=== PATIENT | female | born 1960 | race Caucasian/White ===

== ENCOUNTER 2021-07-03 10:47 | Emergency (ER) | payer SELFPAY ==
[2021-07-03 10:53] VITALS: BP 141/74; PULSE 61; RESP 18; TEMP 36.5; O2SAT 95; BMI 34.4
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
[2021-07-03 11:07] VITALS: BP 150/70; PULSE 65; RESP 18; O2SAT 95
[2021-07-03 11:19] LABS: Basophils % 0.5 %; Eosinophils # 0.1 10^3/uL (0.0-0.8); Eosinophils % 1.2 %; Hematocrit 41.8 % (37.0-47.0); Lymphocytes % 26.6 %; Mean Corpuscular HGB Conc 33.5 g/dL (30.0-36.0); Mean Corpuscular Volume 89.5 fl (81-99); Mean Platelet Volume 11.5 fL (7.4-10.4); Monocytes # 0.3 10^3/uL (0.2-0.9); Monocytes % 4.6 %; Neutrophils # 4.93 10^3/uL (1.8-7.7); Nucleated Red Blood Cells % 0 %; Platelet Count 203 10^3/cmm (130-400); Red Blood Count 4.67 10^6/uL (4.1-5.3); Red Cell Distribution Width 13.2 % (12.1-15.1); White Blood Count 7.5 10^3/uL (4.0-10.0)
[2021-07-03 11:48] LABS: Alanine Aminotransferase 18 U/L (0-33); Albumin Level 4.4 g/dL (3.5-5.2); Alkaline Phosphatase 93 IU/L (35-105); Aspartate Amino Transferase 20 U/L (0-32); Blood Urea Nitrogen 15 mg/dL (6-20); Calcium 9.3 mg/dL (8.5-10.5); Carbon Dioxide 19 mmol/L (22-29); Chloride 103 mmol/L (98-107); Globulin 2.6 g/dL (1.3-4.6); Glomerular Filtration Rate 73.7 mL/min (90-130); Glucose 117 mg/dL (65-115); Osmolality Calculated 286 mOsm/kg (285-295); Sodium 137 mmol/L (136-145); Total Bilirubin 0.4 mg/dL (0.15-1.2)
[2021-07-03 11:53] LABS: Anion Gap 19.4 (5-19); Potassium 4.4 mmol/L (3.5-5.1)
[2021-07-03] MEDS: iohexol 300 mg/mL 100 mL Btl IV (11:56)
[2021-07-03 12:35] VITALS: BP 158/97; PULSE 66; RESP 18; O2SAT 96
[2021-07-03] MEDS: ketorolac 30 mg/mL INJ IVP (12:38)
[2021-07-03] MEDS: orphenadrine 30 mg/mL Inj 2 mL 60 MG IVP (12:38)
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
[2021-07-03 13:36] LABS: Alanine Aminotransferase 19 U/L (0-33); Aspartate Amino Transferase 19 U/L (0-32); Gamma Glutamyl Transferase 8 U/L (5-36)
[2021-07-03 14:00] LABS: Lactate Dehydrogenase 274 U/L (135-214)
[2021-07-03 14:12] LABS: Amylase 49 U/L (28-100); Lipase 24 U/L (13-60)
[2021-07-03 15:00] VITALS: BP 124/84; PULSE 61; O2SAT 98
[2021-07-03 15:38] VITALS: BP 153/93; PULSE 70; RESP 18; TEMP 36.8; O2SAT 98
--- NOTE | 2021-07-04 10:07 | DCPLANNER ---
Addendum entered by Dilma Brooks 07/08/21 20:11: Patient had a follow up appointment scheduled with Dr. Chester at ortho - patient did attend appointment. Addendum entered by Dilma Brooks 07/08/21 06:58: Patient has a follow up appointment scheduled for Thursday, July 08, 2021 at 9:[address] Chester at ortho. Clinic will call patient with appointment information. Original Note: creative resource manager had message to schedule a follow up appointment for patient with ortho. creative resource manager sent patients information to the front office staff at ortho. Patients information will be printed and reviewed. Clinic will call patient with appointment information.
--- NOTE | 2021-07-10 14:53 | DCPLANNER ---
hotel service manager had message to speak with patient about getting established with a primary care physician. hotel service manager called patient, unable to speak with patient at this time, a voicemail was left for patient to return caseworker phone call.
== END 2021-07-03 15:28 | disposition home or self-care (01) ==
PROVIDERS: Emergency Provider Physician Assistant
DX: S27.321A Contusion of lung, unilateral, initial encounter (principal); S36.229A Contusion of unspecified part of pancreas, initial encounter; S22.41XA Multiple fractures of ribs, right side, initial encounter for closed fracture; S32.019A Unspecified fracture of first lumbar vertebra, initial encounter for closed fracture; S32.029A Unspecified fracture of second lumbar vertebra, initial encounter for closed fracture; S32.039A Unspecified fracture of third lumbar vertebra, initial encounter for closed fracture; V83.5XXA Driver of special industrial vehicle injured in nontraffic accident, initial encounter
CPT/HCPCS: 70450; 71260; 72125; 72128; 72131; 74177; 80053; 82150; 82977; 83615; 83690; 84450; 84460; 85025; 96374; 96375; 99284; J1885; J2360; Q9967

== ENCOUNTER → 2021-07-08 08:49 | Outpatient (BNVA) | payer SELFPAY | PROVIDERS: Referring Provider Physician Assistant; Visit Provider Orthopaedic Surgery | DX: S32.009A Unspecified fracture of unspecified lumbar vertebra, initial encounter for closed fracture (principal); X58.XXXA Exposure to other specified factors, initial encounter | CPT/HCPCS: 72100 ==

== ENCOUNTER → 2022-01-22 10:16 | Outpatient (BNVA) | payer SELFPAY | PROVIDERS: Visit Provider Nurse Practitioner Family | DX: L02.91 Cutaneous abscess, unspecified (principal) | CPT/HCPCS: 87070 ==